=== PATIENT | male | born 1975 | race Caucasian/White ===

== ENCOUNTER 2016-12-15 08:35 | Day surgery (SDC) | payer OTHER ==
--- NOTE | 2016-12-14 18:37 | PCM.PREANE ---
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, Family History of Other Type of Anesthesia Reaction Comment: family hx of succinylcholine allergy Family History of Anesthesia Reaction: Yes - REVIEW OF SYSTEMS Constitutional: Reports: no symptoms PITCH WORKER: Reports: no symptoms Respiratory: Reports: no symptoms Cardiovascular: Reports: no symptoms GI: Reports: no symptoms Other: Reports: none - PHYSICAL ASSESSMENT Height: 1.73 m Weight: 65.771 kg NPO Status Date: 12/15/16 NPO Status Time: 00:15 ASA Class: 2 Mental Status: alert & oriented x3 Airway Class: Mallampati = 2 Dentition: Reports: partial (UPPER PARTIAL), missing tooth/teeth Thyro-Mental Finger Breadths: 3 Mouth Opening Finger Breadths: 3 ROM/Head Extension: full Respiratory Status: lungs clear to auscultation bilaterally Cardiovascular Status: regular rate & rhythm, normal S1, S2, no murmur, blood pressure WNL - ALLERGIES Allergies/Adverse Reactions: Allergies Allergy/AdvReac Type Severity Reaction Status Date / Time succinylcholine Allergy family hx Verified 12/10/16 16:05 - ANESTHESIA PLAN Anesthesia Type Planned: general anesthesia - ACKNOWLEDGEMENTS Pt an appropriate candidate for the planned anesthesia: Yes Alternatives and risks of anesthesia discussed w pt/guardian: Yes Pt/Guardian understands and agree with anesthesia plan: Yes PreAnesthesia Questionnaire Other HEENT History: weaqrs glasses, has top plate Respiratory History: Reports: Other (see below) Other Respiratory History: 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" Gastrointestinal History: Reports: None Genitourinary History: Reports: Other (see below) Other Genitourinary History: currently has epididimal cyst Musculoskeletal History: Reports: Fracture Other Musculoskeletal History: hx fx arms Dermatologic History: Reports: Other (see below) Other Dermatologic History: psoriasis of scalp - Past Surgical History Head Surgeries/Procedures: Reports: None HEENT Surgical History: Reports: Oral surgery GI Surgical History: Reports: Hernia, inguinal - SUBSTANCE USE Smoking Status *Q: Never Smoker Recreational Drug Use History: No - HOME MEDS Home Medications: Home Meds Ibuprofen 2 tab PO ASDIRECTED PRN 12/10/16 [History] - CURRENT (IN HOUSE) MEDS Current Meds: Current Medications Lactated Ringer's (Ringers, Lactated) 1,000 mls @ 100 mls/hr IV ASDIRECTED [facility] Cefazolin Sodium/Dextrose 1 gm (/ Premix) 50 mls @ 100 mls/hr IV ONCALL ONE Stop: 12/15/16 00:30
[~2016-12-15 08:35] MED LIST: Lactated Ringers 1,000 ML IV SCH; ceFAZolin 1 GM in Premix Bag 1 BAG IV ONE
[2016-12-15] MEDS ORDERED: Propofol 200 MG/20 ML SDV ONE (08:58)
[2016-12-15] MEDS ORDERED: fentaNYL 100 MCG/2 ML SDV ONE ×2 (08:58→10:31)
[2016-12-15] MEDS ORDERED: Midazolam 1 MG/ML 2 ML SDV ONE (08:58)
[2016-12-15] MEDS ORDERED: Lidocaine 2% 5 ML SDV ONE (08:58)
[2016-12-15] MEDS ORDERED: Ondansetron 4 MG/2 ML SDV ONE (08:59)
[2016-12-15] MEDS ORDERED: Bupivacaine 0.5% 30 ML SDV ONE (10:09)
[2016-12-15] MEDS ORDERED: HYDROmorphone 2 MG/ML Syringe IVPUSH ONE (11:28)
[2016-12-15] MEDS: fentaNYL 100 MCG/2 ML SDV IVPUSH PRN ×3 (12:39→13:37)
--- NOTE | 2016-12-15 13:04 | PCM.POSTAN ---
POST ANESTHESIA ASSESSMENT - MENTAL STATUS Mental Status: alert, oriented - RESPIRATORY Respiratory Status: respiratory rate WNL, airway patent, O2 saturation stable - CARDIOVASCULAR CV Status: pulse rate WNL, blood pressure stable - GASTROINTESTINAL GI Status: no symptoms - PAIN Pain Score: 5 - POST OP HYDRATION Hydration Status: adequate & stable
[2016-12-15] MEDS ORDERED: Acetaminophen/HYDROcodone 325-5 MG Tab PO PRN ×2 (13:22→14:01)
[2016-12-15] MEDS ORDERED: Ketorolac 30 MG/ML SDV IM ONE (14:00)
[2016-12-15 15:08] VITALS: BP 138/82
--- NOTE | 2016-12-15 15:11 | PCM48HPAN ---
Post Anesthesia Note - EVALUATION WITHIN 48HRS OF ANESTHETIC Vital Signs in Normal Range: Yes Patient Participated in Evaluation: Yes Respiratory Function Stable: Yes Airway Patent: Yes Cardiovascular Function Stable: Yes Hydration Status Stable: Yes Pain Control Satisfactory: Yes Nausea and Vomiting Control Satisfactory: Yes Mental Status Recovered: Yes
--- NOTE | 2016-12-15 21:09 | OR ---
SURGEON: Sriram Samson M.D. DATE OF PROCEDURE: 12/15/2016 PREOPERATIVE DIAGNOSIS: Bilateral epididymal cysts. POSTOPERATIVE DIAGNOSIS: Bilateral epididymal cysts. OPERATION: Excision of bilateral epididymal cysts. DESCRIPTION OF PROCEDURE: The patient is given general anesthesia, in the supine position. He was prepped and draped in sterile drapes. A transverse incision was made in the left scrotal sac. The testicle and the cyst were delivered. This cyst was removed in its entirety. All bleeding points were fulgurated. The testicle was put back in place. A 3-0 chromic suture was used to keep the testicle in the proper place because of the excessive length of the cord and to avoid future torsion. The wound was then closed in 2 layers. A 3-0 chromic running suture for the subcutaneous structures and 3-0 chromic interrupted sutures for the skin. A Hazel drain was left in, brought to the outside through a separate stab wound incision in a more dependent position in the left scrotal sac. The exact same thing was done on the right side with the exception of not suturing the testicle in place, that cord appeared significantly shorter than the left one. The patient tolerated the procedure well and was moved to recovery room in good condition. OLLIE / CECILE /[id number]
== END 2016-12-15 16:00 | disposition home or self-care (01) ==
LOC: MW.SDS 08:35
PROVIDERS: ATTEND Urology
DX: L72.0 Epidermal cyst (principal); Z88.8 Allergy status to other drugs, medicaments and biological substances; Z79.899 Other long term (current) drug therapy
CPT/HCPCS: 11426; 12042; A9270; J0690; J1885; J2250; J2405; J3010; J7120; 00920; 88304; J2704